=== PATIENT | female | born 1985 | race Caucasian/White ===

== ENCOUNTER 2020-11-26 21:40 | Emergency (ER) | payer OTHER ==
[2020-11-26 21:52] VITALS: BP 141/92; PULSE 110; TEMP 99.1; BMI 37.2
== END 2020-11-27 00:01 | disposition home or self-care (01) ==
LOC: FER 21:40
DX: R22.42 Localized swelling, mass and lump, left lower limb (principal)
CPT/HCPCS: 93971-TC; 99284-25